=== PATIENT | female | born 1955 | race Caucasian/White ===

== ENCOUNTER 2018-07-19 18:38 | Inpatient (IN) | payer MEDICAID, OTHER ==
[~2018-07-19] VITALS: Ht 170.2 cm; Wt 124.0 kg
[2018-07-19] MEDS ORDERED: fentaNYL/PF 50MCG/1 ML 2ML syringe IV ONE (20:30)
[2018-07-19] MEDS ORDERED: iohexol 350MG/ML 100ml bottle IV ONE (20:36)
[2018-07-19 20:53] LABS: BASOPHILS # (AUTO) 0.1 X10'3 (0-0.2); BASOPHILS % (AUTO) 0.5 % (0-1); EOSINOPHILS % (AUTO) 0.1 % (0-6); HEMATOCRIT 36.9 % (35.0-45.0); HEMOGLOBIN 11.8 g/dl (12.0-16.0); LYMPHOCYTES # (AUTO) 0.7 X10'3 (1.1-4.8); MEAN CORPUSCULAR HEMOGLOBIN 28.2 PG (27.0-31.0); MEAN CORPUSCULAR VOLUME 88.3 FL (78-98); MONOCYTES # (AUTO) 0.4 X10'3 (0-0.9); MONOCYTES % (AUTO) 3.4 % (2-12); NEUTROPHILS # (AUTO) 10.1 X10'3 (1.8-7.7); PLATELET COUNT 317 X10'3 (140-440); RED BLOOD COUNT 4.18 X10'6 (4.20-5.60); RED CELL DISTRIBUTION WIDTH 17.2 % (11.5-14.5); WHITE BLOOD COUNT 11.3 X10'3 (4.5-11.0)
--- NOTE | 2018-07-19 21:10 | NUR ---
[id number] FAMILY OR FRIEND OF PT
[2018-07-19 21:14] LABS: PARTIAL THROMBOPLASTIN TIME 25 SECONDS (22-32)
[2018-07-19 21:28] LABS: ALANINE AMINOTRANSFERASE 52 U/L (12-78); ALKALINE PHOSPHATASE 122 IU/L (46-116); ANION GAP 15 (8-16); ASPARTATE AMINO TRANSFERASE 60 U/L (10-37); BILIRUBIN,TOTAL 0.5 MG/DL (0.1-1.0); BLOOD UREA NITROGEN 26 MG/DL (7-18); CALCIUM 9.3 MG/DL (8.5-10.1); CHLORIDE 99 MMOL/L (99-107); CREATININE 2.17 MG/DL (0.40-0.90); GLUCOSE 125 MG/DL (70-104); POTASSIUM 3.9 MMOL/L (3.5-5.1); SODIUM 136 MMOL/L (135-145); TOTAL CARBON DIOXIDE 21.7 MMOL/L (24-32); TOTAL PROTEIN 8.1 G/DL (6.4-8.2); eGFR 23 ML/MIN
[2018-07-19] MEDS ORDERED: normal saline 1000ML IV soln IVB ONE (21:35)
[2018-07-19 21:36] LABS: CLARITY,URINE SLIGHTLY CLOUDY (Clear); COLOR,URINE YELLOW (Yellow); GLUCOSE, URINE NEGATIVE (Neg); KETONES,URINE NEGATIVE (Neg); LEUKOCYTE ESTERASE ,URINE NEGATIVE (Neg); NITRITES, URINE NEGATIVE (Neg); OCCULT BLOOD,URINE MODERATE (Neg); PH,URINE 5.5 (4.8-8.0); PROTEIN,URINE 30 mg/dl (Neg); UROBILINOGEN,URINE 0.2 E.U/dL (0.2-1.0)
[2018-07-19] MEDS ORDERED: METO-539 PO (21:36)
[2018-07-19 21:37] LABS: UA COLLECTION TYPE URINAL
[2018-07-19] MEDS ORDERED: ENAL10TA78 PO (21:37)
[2018-07-19] MEDS ORDERED: midazolam 2 mg/2 ml injection IV PRN (22:10)
[2018-07-19] MEDS ORDERED: LIDOcaine 1%/PF 5ML 10 MG/ML VIAL SQ ONE (22:10)
[2018-07-19] MEDS ORDERED: fentaNYL/PF 50MCG/1 ML 2ML syringe IV PRN (22:10)
[2018-07-19] MEDS ORDERED: heparin 1,000 UNITS/NS 500ml 500 ML ICATH ONE (22:10)
[2018-07-19 22:12] LABS: MUCUS STRANDS MODERATE /LPF (Neg); SQUAMOUS EPITHELIAL CELL,UR FEW /LPF (FEW); WBC,URINE 0-4 /HPF (0-4)
[2018-07-19 22:13] LABS: BACTERIA,URINE FEW /HPF (Neg)
[2018-07-19] MEDS ORDERED: LIDOcaine 1%/PF 5ML 10 MG/ML VIAL ONE (22:16)
[2018-07-19] MEDS ORDERED: iohexol 300mg/ml 100ml inj. ONE (22:17)
[2018-07-19] MEDS ORDERED: midazolam 2 mg/2 ml injection ONE ×3 (22:17→23:12)
[2018-07-19] MEDS ORDERED: heparin 1,000 UNITS/NS 500ml 500 ML ONE ×2 (22:17→23:35)
[2018-07-19] MEDS ORDERED: fentaNYL/PF 50MCG/1 ML 2ML syringe ONE ×2 (22:17→23:11)
--- NOTE | 2018-07-19 22:46 | NUR ---
PT OFF THE FLOOR GOING TO IR.
[2018-07-19] MEDS ORDERED: ondansetron/PF 4mg/2ml inj IV PRN (23:00)
[2018-07-19] MEDS ORDERED: acetaminophen 325mg tablet PO PRN ×2 (23:00)
[2018-07-19] MEDS ORDERED: HYDROcodone/acetaminophen 5mg/325mg tablet PO PRN (23:00)
[2018-07-19] MEDS ORDERED: potassium CL 10mEq/100ml bag 100 ML IV PRN ×2 (23:00)
[2018-07-19] MEDS: K, MAG and/or Phos replacement - Verify level? MC SCH (23:00)
[2018-07-19] MEDS ORDERED: morphine 2 MG/ML inj. syringe IV PRN (23:00)
[2018-07-19] MEDS ORDERED: potassium Cl 20 mEq SR tablet PO PRN (23:00)
[2018-07-19] MEDS ORDERED: nitroGLYCERIN-Tridil 50MG/D5W 250 ML IV ONE (23:06)
[2018-07-19] MEDS ORDERED: heparin 1,000 UNITS/NS 500ml 500 ML IV SCH ×2 (23:28→23:34)
[2018-07-19] MEDS: tPA-cathflo 2mg/2ml IV flush 4 MG in normal saline 100ml IV soln 100 ML ICATH SCH (23:28)
[2018-07-20] VITALS (29 sets, daily range): BP systolic 112–187; BP diastolic 60–158
--- NOTE | 2018-07-20 | NUR ---
Received patient in room CICU 2013 from IR. I have received bedside report from Coby RN and DARSHAN Kwon and had the opportunity to ask questions and assume patient care.
[2018-07-20] MEDS: morphine 4 MG/ML inj SYRINge IV PRN ×2 (01:54→06:25)
[2018-07-20] MEDS: HYDROmorphone/NS 1 mg/ml CADD 50 ML IV SCH ×12 (02:41→23:00)
[2018-07-20 03:10] LABS: ALANINE AMINOTRANSFERASE 49 U/L (12-78); ALBUMIN 3.3 G/DL (3.4-5.0); ANION GAP 14 (8-16); ASPARTATE AMINO TRANSFERASE 54 U/L (10-37); BLOOD UREA NITROGEN 23 MG/DL (7-18); BUN/CREATININE RATIO 14.8 (6.6-38.0); CALCIUM 8.7 MG/DL (8.5-10.1); CHLORIDE 102 MMOL/L (99-107); CREATININE 1.55 MG/DL (0.40-0.90); GLUCOSE 121 MG/DL (70-104); MAGNESIUM 2.2 MG/DL (1.5-2.4); POTASSIUM 3.7 MMOL/L (3.5-5.1); SODIUM 136 MMOL/L (135-145); TOTAL CARBON DIOXIDE 20.1 MMOL/L (24-32); eGFR 34 ML/MIN
[2018-07-20 03:11] LABS: BASOPHILS # (AUTO) 0.1 X10'3 (0-0.2); BASOPHILS % (AUTO) 0.6 % (0-1); EOSINOPHILS % (AUTO) 0 % (0-6); HEMATOCRIT 32.5 % (35.0-45.0); HEMOGLOBIN 10.7 g/dl (12.0-16.0); LYMPHOCYTES # (AUTO) 1.3 X10'3 (1.1-4.8); LYMPHOCYTES % (AUTO) 13.5 % (21-51); MEAN CORPUSCULAR HEMOGLOBIN 28.7 PG (27.0-31.0); MEAN CORPUSCULAR HGB CONC 32.7 g/dL (33.0-36.5); MEAN CORPUSCULAR VOLUME 87.8 FL (78-98); MEAN PLATELET VOLUME 8.1 FL (7.4-10.4); MONOCYTES # (AUTO) 0.7 X10'3 (0-0.9); MONOCYTES % (AUTO) 7.3 % (2-12); NEUTROPHILS # (AUTO) 7.4 X10'3 (1.8-7.7); NEUTROPHILS % (AUTO) 78.6 % (42-75); PLATELET COUNT 272 X10'3 (140-440); RED BLOOD COUNT 3.71 X10'6 (4.20-5.60); RED CELL DISTRIBUTION WIDTH 17.3 % (11.5-14.5); WHITE BLOOD COUNT 9.4 X10'3 (4.5-11.0)
[2018-07-20 03:27] LABS: ALBUMIN/GLOBULIN RATIO 0.9 (1.1-1.5); ALKALINE PHOSPHATASE 104 IU/L (46-116); BILIRUBIN,TOTAL 0.4 MG/DL (0.1-1.0); TOTAL PROTEIN 6.9 G/DL (6.4-8.2)
[2018-07-20] MEDS ORDERED: LORazepam 2 mg/ml vial IV PRN (04:00)
--- NOTE | 2018-07-20 04:00 | NUR ---
Patient really restless and anxious, keeps lifting her arm and bending her knee; thrashing and shaking. Patient is repeatedly being asked to keep arm still and at her side and keep her leg straight due to her sheath. Despite my efforts and the use of her dilaudid CAD, patient is inconsolable and blood pressure is in the 190's systolically. Bill Burnham called;was given an order for Ativan. Will give and continue to monitor.
[2018-07-20] MEDS: normal saline 1000ml 1,000 ML IV SCH ×2 (04:11→07:30)
[2018-07-20] MEDS ORDERED: tPA-cathflo 2mg/2ml IV flush 4 MG in normal saline 100ml IV soln 100 ML ICATH SCH (04:47)
[2018-07-20 06:18] LABS: HEMATOCRIT 32.5 % (35.0-45.0); HEMOGLOBIN 10.4 g/dl (12.0-16.0); MEAN CORPUSCULAR HEMOGLOBIN 28.7 PG (27.0-31.0); MEAN CORPUSCULAR HGB CONC 32.1 g/dL (33.0-36.5); MEAN CORPUSCULAR VOLUME 89.5 FL (78-98); MEAN PLATELET VOLUME 8.3 FL (7.4-10.4); PLATELET COUNT 250 X10'3 (140-440); RED BLOOD COUNT 3.63 X10'6 (4.20-5.60); RED CELL DISTRIBUTION WIDTH 16.9 % (11.5-14.5); WHITE BLOOD COUNT 9.3 X10'3 (4.5-11.0)
--- NOTE | 2018-07-20 06:42 | NUR ---
Problems reprioritized. Patient report given, questions answered & plan of care reviewed with DARSHAN Medrano.
[2018-07-20] MEDS: tPA-cathflo 2mg/2ml IV flush 4 MG in normal saline 100ml IV soln 100 ML ICATH SCH ×3 (07:30→23:28)
[2018-07-20] MEDS: K, MAG and/or Phos replacement - Verify level? MC SCH (07:35)
[2018-07-20] MEDS ORDERED: pantoprazole 40 MG vial IV SCH (08:00)
[2018-07-20] MEDS ORDERED: ESOMEPRAZOLE 40 MG VIAL IV STA (08:51)
[2018-07-20 09:24] LABS: URINE AMPHETAMINE SCREEN POSITIVE (Neg); URINE BARBITUATE SCREEN NEGATIVE (Neg); URINE BENZODIAZEPINES SCREEN POSITIVE (Neg); URINE CANNABINOID SCREEN POSITIVE (Neg); URINE COCAINE SCREEN NEGATIVE (Neg); URINE METHADONE SCREEN NEGATIVE (Neg); URINE OPIATE SCREEN POSITIVE (Neg); URINE PHENCYCLIDINE SCREEN NEGATIVE (Neg)
[2018-07-20] MEDS: heparin 1,000 UNITS/NS 500ml 500 ML IV SCH ×2 (09:53→20:20)
[2018-07-20] MEDS: QUEtiapine 25mg tablet PO SCH ×2 (09:54→20:44)
[2018-07-20 11:45] LABS: HEMATOCRIT 32.2 % (35.0-45.0); HEMOGLOBIN 10.4 g/dl (12.0-16.0); MEAN CORPUSCULAR HEMOGLOBIN 28.8 PG (27.0-31.0); MEAN CORPUSCULAR HGB CONC 32.4 g/dL (33.0-36.5); MEAN CORPUSCULAR VOLUME 88.8 FL (78-98); MEAN PLATELET VOLUME 7.9 FL (7.4-10.4); PLATELET COUNT 256 X10'3 (140-440); RED BLOOD COUNT 3.63 X10'6 (4.20-5.60); RED CELL DISTRIBUTION WIDTH 17.4 % (11.5-14.5); WHITE BLOOD COUNT 9.3 X10'3 (4.5-11.0)
[2018-07-20] MEDS ORDERED: fentaNYL/PF 50MCG/1 ML 2ML syringe IV PRN (12:10)
[2018-07-20] MEDS ORDERED: midazolam 2 mg/2 ml injection IV PRN (12:10)
[2018-07-20] MEDS ORDERED: LIDOcaine 1%/PF 5ML 10 MG/ML VIAL ONE (12:19)
[2018-07-20] MEDS ORDERED: iohexol 300mg/ml 100ml inj. ONE (12:19)
--- NOTE | 2018-07-20 12:41 | NUR ---
Patient went to IR on the monitor with nursing staff at 1230.
[2018-07-20] MEDS ORDERED: heparin 1,000 UNITS/NS 500ml 500 ML ONE (12:58)
[2018-07-20] MEDS ORDERED: nitroGLYCERIN-Tridil 50MG/D5W 250 ML IV ONE (13:10)
--- NOTE | 2018-07-20 13:51 | NUR ---
Patient returned from IR on the monitor with nursing staff at 1346.
[2018-07-20] MEDS ORDERED: ringers solution, lacted 1,000 ML IV SCH (13:52)
[2018-07-20] MEDS ORDERED: proCHLORperazine 10 MG/2 ml inj IV PRN (13:55)
[2018-07-20] MEDS ORDERED: meperidine/PF 25mg/ml syringe IV PRN ×3 (13:55)
[2018-07-20] MEDS ORDERED: ondansetron/PF 4mg/2ml inj IV PRN (13:55)
[2018-07-20] MEDS ORDERED: morphine 4 MG/ML inj SYRINge IV PRN ×2 (13:55)
[2018-07-20] MEDS ORDERED: heparin 10,000 units/1 ML INJ ONE (14:21)
--- NOTE | 2018-07-20 14:34 | NUR ---
Patient taken to OR on monitor by nursing staff at 1434.
[2018-07-20] MEDS ORDERED: midazolam 2 mg/2 ml injection ONE (14:38)
[2018-07-20] MEDS ORDERED: fentaNYL /PF 50mcg/ml 5ml ampule ONE (14:38)
[2018-07-20] MEDS ORDERED: propofol inj 20 ML IV ONE (14:44)
[2018-07-20] MEDS ORDERED: rocuronium 10mg/ml inj IV ONE (14:44)
[2018-07-20] MEDS ORDERED: LIDOcaine 2% (20mg/ml) 5ml vial ONE (14:44)
[2018-07-20] MEDS ORDERED: labetalol 20mg/4ml (5mg/ml) syringe IV ONE (14:56)
[2018-07-20] MEDS ORDERED: ceFAZolin 1000mg inj ONE ×2 (15:09)
[2018-07-20] MEDS ORDERED: dexamethasone sod phosphate 4mg/ml inj. ONE (15:59)
[2018-07-20] MEDS ORDERED: ketorolac trometh. 30mg/ml inj. ONE (16:00)
--- NOTE | 2018-07-20 16:51 | NUR ---
Patient returned from OR on the monitor by nursing staff at 1620. Patient was receiving Oxygen via simple mask at 10 L. New 20g PIV in Left Upper arm and R groin has art line.
[2018-07-20] MEDS: enalaprilat dihydrate 2.5mg/2ml vial IV PRN (17:18)
--- NOTE | 2018-07-20 17:41 | NUR ---
RN & CRN could not find radial pulse on (R) hand with doppler. Called Dr. Thibodeaux to notify of absence of pulse. He suggested pain control. No further orders received.
--- NOTE | 2018-07-20 18:24 | NUR ---
Problems reprioritized. Patient report given, questions answered & plan of care reviewed with Yudelka SEXTON.
--- NOTE | 2018-07-20 18:30 | NUR ---
Patient in room CICU 2013. I have received report and had the opportunity to ask questions and assume patient care.
--- NOTE | 2018-07-20 18:36 | NUR ---
Spoke to IR [employer] [employer] re: IV heparin. IV heparin is 1000 units per 500 ml NS running at 40 ml/hr. Per IR RN low dose heparin is non-therapeutic. Dr. Gonzalez put heparin into (L) UE PIV. (R) fem sheath came out of OR to pressure bag for B/P per Dr. Gonzalez. Will place order to monitor PTT per protocol and DARSHAN Jha will report results as needed.
--- NOTE | 2018-07-20 19:00 | NUR ---
pt will be resting with eyes close one moment and then crying in pain the next. however once patient presses ad setter she is soon resting with eyes closed again. will continue to monitor
[2018-07-20] MEDS: lisinopril 5mg tablet PO SCH (20:44)
[2018-07-20 20:50] LABS: HEMATOCRIT 31.9 % (35.0-45.0); HEMOGLOBIN 10.3 g/dl (12.0-16.0); MEAN CORPUSCULAR HEMOGLOBIN 28.8 PG (27.0-31.0); MEAN CORPUSCULAR HGB CONC 32.3 g/dL (33.0-36.5); MEAN CORPUSCULAR VOLUME 89.1 FL (78-98); MEAN PLATELET VOLUME 8.2 FL (7.4-10.4); PLATELET COUNT 220 X10'3 (140-440); RED BLOOD COUNT 3.57 X10'6 (4.20-5.60); WHITE BLOOD COUNT 9.5 X10'3 (4.5-11.0)
--- NOTE | 2018-07-20 22:03 | NUR ---
ptt came back low at 25. heparin infusing at a set rate to keep sheath open. tpn stopped on day shift and sheath pressure bagged for continuous bp monitoring. md notified. orders recieved to d/c heparin after this bag finishes.
[2018-07-21] VITALS (23 sets, daily range): BP systolic 120–167; BP diastolic 52–99
[2018-07-21] MEDS: HYDROmorphone/NS 1 mg/ml CADD 50 ML IV SCH ×12 (01:00→23:00)
--- NOTE | 2018-07-21 04:09 | NUR ---
pt continues to move and been leg even after receiving education on arterial lines. wave form is dampened despite flushing, repositioning, and zeroing. will continue to monitor.
[2018-07-21 05:48] LABS: BASOPHILS % (AUTO) 0.1 % (0-1); EOSINOPHILS % (AUTO) 0 % (0-6); HEMATOCRIT 30.9 % (35.0-45.0); LYMPHOCYTES # (AUTO) 0.7 X10'3 (1.1-4.8); LYMPHOCYTES % (AUTO) 6.4 % (21-51); MEAN CORPUSCULAR HEMOGLOBIN 29.1 PG (27.0-31.0); MEAN CORPUSCULAR HGB CONC 32.3 g/dL (33.0-36.5); MEAN CORPUSCULAR VOLUME 90.1 FL (78-98); MEAN PLATELET VOLUME 8.6 FL (7.4-10.4); MONOCYTES # (AUTO) 0.5 X10'3 (0-0.9); MONOCYTES % (AUTO) 4.6 % (2-12); NEUTROPHILS # (AUTO) 9.1 X10'3 (1.8-7.7); NEUTROPHILS % (AUTO) 88.9 % (42-75); PLATELET COUNT 230 X10'3 (140-440); RED BLOOD COUNT 3.43 X10'6 (4.20-5.60); RED CELL DISTRIBUTION WIDTH 17.6 % (11.5-14.5); WHITE BLOOD COUNT 10.3 X10'3 (4.5-11.0)
[2018-07-21 05:50] LABS: ALANINE AMINOTRANSFERASE 43 U/L (12-78); ALBUMIN 2.8 G/DL (3.4-5.0); ALBUMIN/GLOBULIN RATIO 0.8 (1.1-1.5); ALKALINE PHOSPHATASE 88 IU/L (46-116); ANION GAP 10 (8-16); ASPARTATE AMINO TRANSFERASE 40 U/L (10-37); BILIRUBIN,TOTAL 0.2 MG/DL (0.1-1.0); BLOOD UREA NITROGEN 21 MG/DL (7-18); BUN/CREATININE RATIO 19.8 (6.6-38.0); CHLORIDE 107 MMOL/L (99-107); CREATININE 1.06 MG/DL (0.40-0.90); GLUCOSE 112 MG/DL (70-104); MAGNESIUM 2.2 MG/DL (1.5-2.4); PHOSPHORUS 4.2 MG/DL (2.3-4.5); SODIUM 138 MMOL/L (135-145); TOTAL CARBON DIOXIDE 20.6 MMOL/L (24-32); TOTAL PROTEIN 6.3 G/DL (6.4-8.2); eGFR 52 ML/MIN
[2018-07-21] MEDS: tPA-cathflo 2mg/2ml IV flush 4 MG in normal saline 100ml IV soln 100 ML ICATH SCH (07:11)
[2018-07-21] MEDS: K, MAG and/or Phos replacement - Verify level? MC SCH (07:12)
[2018-07-21] MEDS: QUEtiapine 25mg tablet PO SCH ×2 (08:07→20:15)
[2018-07-21] MEDS: ESOMEPRAZOLE 40 MG VIAL IV SCH (08:07)
--- NOTE | 2018-07-21 10:13 | NUR ---
Patient's right hand remains dusky and cold with black coloring on digits. New noticeable dark discoloration on thumb and anterior forearm, cold to touch, radial pulse still absent. Patient continues to c/o pain. Will continue to monitor. CRN aware.
[2018-07-21] MEDS: normal saline 1000ml 1,000 ML IV SCH ×2 (14:59→22:28)
[2018-07-21] MEDS: lisinopril 5mg tablet PO SCH (20:15)
[2018-07-22] VITALS (24 sets, daily range): BP systolic 119–167; BP diastolic 47–82
[2018-07-22] MEDS: HYDROmorphone/NS 1 mg/ml CADD 50 ML IV SCH ×12 (01:00→23:00)
[2018-07-22 05:15] LABS: BASOPHILS % (AUTO) 0.2 % (0-1); EOSINOPHILS # (AUTO) 0.1 X10'3 (0-0.9); EOSINOPHILS % (AUTO) 0.6 % (0-6); LYMPHOCYTES # (AUTO) 1.1 X10'3 (1.1-4.8); MEAN CORPUSCULAR HEMOGLOBIN 28.3 PG (27.0-31.0); MEAN CORPUSCULAR HGB CONC 31.2 g/dL (33.0-36.5); MEAN CORPUSCULAR VOLUME 90.8 FL (78-98); MEAN PLATELET VOLUME 8.4 FL (7.4-10.4); MONOCYTES % (AUTO) 9.2 % (2-12); NEUTROPHILS # (AUTO) 8.9 X10'3 (1.8-7.7); PLATELET COUNT 229 X10'3 (140-440); RED BLOOD COUNT 3.52 X10'6 (4.20-5.60); RED CELL DISTRIBUTION WIDTH 17.5 % (11.5-14.5); WHITE BLOOD COUNT 11.1 X10'3 (4.5-11.0)
[2018-07-22 05:29] LABS: ALANINE AMINOTRANSFERASE 39 U/L (12-78); ALBUMIN 2.8 G/DL (3.4-5.0); ALBUMIN/GLOBULIN RATIO 0.8 (1.1-1.5); ALKALINE PHOSPHATASE 88 IU/L (46-116); ANION GAP 10 (8-16); ASPARTATE AMINO TRANSFERASE 42 U/L (10-37); BILIRUBIN,TOTAL 0.2 MG/DL (0.1-1.0); BLOOD UREA NITROGEN 19 MG/DL (7-18); BUN/CREATININE RATIO 19.6 (6.6-38.0); CALCIUM 8.4 MG/DL (8.5-10.1); CHLORIDE 106 MMOL/L (99-107); CREATININE 0.97 MG/DL (0.40-0.90); GLUCOSE 88 MG/DL (70-104); MAGNESIUM 2.3 MG/DL (1.5-2.4); PHOSPHORUS 2.2 MG/DL (2.3-4.5); POTASSIUM 3.8 MMOL/L (3.5-5.1); SODIUM 139 MMOL/L (135-145); TOTAL CARBON DIOXIDE 22.8 MMOL/L (24-32); TOTAL PROTEIN 6.5 G/DL (6.4-8.2); eGFR 58 ML/MIN
--- NOTE | 2018-07-22 06:36 | NUR ---
Problems reprioritized. Patient report given, questions answered & plan of care reviewed with Mary SEXTON.
--- NOTE | 2018-07-22 06:37 | NUR ---
Patient in room CICU 2013. I have received report from DARSHAN Fernandes and had the opportunity to ask questions and assume patient care.
[2018-07-22] MEDS: K, MAG and/or Phos replacement - Verify level? MC SCH (08:00)
[2018-07-22] MEDS: ESOMEPRAZOLE 40 MG VIAL IV SCH (08:51)
[2018-07-22] MEDS: QUEtiapine 25mg tablet PO SCH ×2 (08:51→20:30)
[2018-07-22] MEDS ORDERED: HYDROcodone/acetaminophen 5mg/325mg tablet PO PRN ×2 (11:55)
[2018-07-22] MEDS ORDERED: morphine 4 MG/ML inj SYRINge IV PRN (11:55)
[2018-07-22] MEDS ORDERED: ringers solution, lacted 1,000 ML IV ONE (13:40)
--- NOTE | 2018-07-22 14:40 | NUR ---
Pt drowsy, per Dr. Cast's orders, d/c'd the continuous dose of dilaudid cadd. Pt has 0.2mg demand dose only at this time.
--- NOTE | 2018-07-22 18:06 | NUR ---
Problems reprioritized. Patient report given, questions answered & plan of care reviewed with DARSHAN Fernandes.
[2018-07-22] MEDS: lisinopril 5mg tablet PO SCH (20:30)
[2018-07-23] VITALS (36 sets, daily range): BP systolic 101–178; BP diastolic 44–89
[2018-07-23] MEDS: HYDROmorphone/NS 1 mg/ml CADD 50 ML IV SCH ×12 (01:00→23:00)
[2018-07-23] MEDS: normal saline 1000ml 1,000 ML IV SCH ×4 (01:16→20:45)
[2018-07-23 05:07] LABS: BASOPHILS % (AUTO) 0.4 % (0-1); EOSINOPHILS # (AUTO) 0.2 X10'3 (0-0.9); EOSINOPHILS % (AUTO) 1.5 % (0-6); HEMATOCRIT 30.4 % (35.0-45.0); HEMOGLOBIN 9.6 g/dl (12.0-16.0); LYMPHOCYTES % (AUTO) 9.1 % (21-51); MEAN CORPUSCULAR HEMOGLOBIN 29.2 PG (27.0-31.0); MEAN CORPUSCULAR HGB CONC 31.6 g/dL (33.0-36.5); MEAN CORPUSCULAR VOLUME 92.2 FL (78-98); MEAN PLATELET VOLUME 8.3 FL (7.4-10.4); MONOCYTES # (AUTO) 0.9 X10'3 (0-0.9); MONOCYTES % (AUTO) 8.3 % (2-12); NEUTROPHILS # (AUTO) 8.7 X10'3 (1.8-7.7); NEUTROPHILS % (AUTO) 80.7 % (42-75); PLATELET COUNT 227 X10'3 (140-440); RED CELL DISTRIBUTION WIDTH 17.4 % (11.5-14.5); WHITE BLOOD COUNT 10.7 X10'3 (4.5-11.0)
[2018-07-23 05:11] LABS: ALANINE AMINOTRANSFERASE 44 U/L (12-78); ALBUMIN 2.6 G/DL (3.4-5.0); ALBUMIN/GLOBULIN RATIO 0.7 (1.1-1.5); ALKALINE PHOSPHATASE 83 IU/L (46-116); ANION GAP 9 (8-16); ASPARTATE AMINO TRANSFERASE 84 U/L (10-37); BILIRUBIN,TOTAL 0.2 MG/DL (0.1-1.0); BLOOD UREA NITROGEN 16 MG/DL (7-18); BUN/CREATININE RATIO 19.5 (6.6-38.0); CALCIUM 8.2 MG/DL (8.5-10.1); CHLORIDE 106 MMOL/L (99-107); CREATININE 0.82 MG/DL (0.40-0.90); GLUCOSE 98 MG/DL (70-104); MAGNESIUM 2.1 MG/DL (1.5-2.4); PHOSPHORUS 1.9 MG/DL (2.3-4.5); POTASSIUM 3.8 MMOL/L (3.5-5.1); SODIUM 138 MMOL/L (135-145); TOTAL PROTEIN 6.3 G/DL (6.4-8.2); eGFR 70 ML/MIN
[2018-07-23 05:22] LABS: PARTIAL THROMBOPLASTIN TIME 25 SECONDS (22-32)
--- NOTE | 2018-07-23 06:36 | NUR ---
Patient in room CICU 2013. I have received report from DARSHAN Fernandes and had the opportunity to ask questions and assume patient care.
[2018-07-23] MEDS: K, MAG and/or Phos replacement - Verify level? MC SCH (08:00)
[2018-07-23] MEDS: QUEtiapine 25mg tablet PO SCH ×2 (08:08→20:40)
[2018-07-23] MEDS: ESOMEPRAZOLE 40 MG VIAL IV SCH (08:08)
[2018-07-23] MEDS ORDERED: ceFAZolin 1GM/D5W- ADD-VANTAGE 50 ML IV SCH ×2 (13:00→16:00)
[2018-07-23] MEDS ORDERED: acetaminophen 1000 MG/100ml vial IV ONE (13:12)
[2018-07-23] MEDS ORDERED: sevoflurane 250ml liquid IH ONE (13:12)
--- NOTE | 2018-07-23 13:14 | NUR ---
Pt taken to OR by surgery team
[2018-07-23] MEDS ORDERED: fentaNYL /PF 50mcg/ml 5ml ampule ONE (13:19)
[2018-07-23] MEDS ORDERED: midazolam 2 mg/2 ml injection ONE (13:19)
[2018-07-23] MEDS: CADD PCA waste documentation MC SCH (13:26)
[2018-07-23] MEDS ORDERED: ceFAZolin 1000mg inj ONE ×2 (13:33)
[2018-07-23] MEDS ORDERED: rocuronium 10mg/ml inj IV ONE (13:38)
[2018-07-23] MEDS ORDERED: propofol inj 20 ML IV ONE (13:38)
[2018-07-23] MEDS ORDERED: ringers solution, lacted 1,000 ML IV SCH (14:08)
[2018-07-23] MEDS ORDERED: proCHLORperazine 10 MG/2 ml inj IV PRN (14:10)
[2018-07-23] MEDS ORDERED: meperidine/PF 25mg/ml syringe IV PRN ×3 (14:10)
[2018-07-23] MEDS ORDERED: morphine 4 MG/ML inj SYRINge IV PRN ×2 (14:10)
[2018-07-23] MEDS ORDERED: ondansetron/PF 4mg/2ml inj IV PRN (14:10)
[2018-07-23] MEDS ORDERED: neostigmine methylsulfate 1 MG/ML 10ml vial ONE (14:14)
[2018-07-23] MEDS ORDERED: glycopyrrolate 0.2mg/ml inj ONE (14:14)
--- NOTE | 2018-07-23 14:25 | NUR ---
Received from OR via BED, accompanied by Anesthesiologist DR AG and report given by Anesthesiologist. PT DROWSY, DENIES PAIN, RIGHT ARM W/AMPUTATION ABOVE ELBOW W/DRSG COVERED BY STUMP SOCK CDI, MONICA W/SANGUINOUS DRAINAGE, CONTEH CATHETER TO GRAVITY DRAINAGE. Addendum: 07/23/18 at 1508 by Blanca Mendez RN Amended: Links added.
--- NOTE | 2018-07-23 14:26 | NUR ---
report recieved from Jessy SEXTON from [facility]
--- NOTE | 2018-07-23 15:15 | NUR ---
received report from recovery
--- NOTE | 2018-07-23 15:55 | NUR ---
Report called to receiving nurse. Transferred via BED, NO Belongings, RECEIVING RN AT BEDSIDE TO RECEIVE PT, BLL, CALL LIGHT GIVEN, SIDE RAILS UP X 2. Special Issues communicated to receiving nurse. YES. Addendum: 07/23/18 at 1608 by Blanca Mendez RN Amended: Links added.
--- NOTE | 2018-07-23 16:00 | NUR ---
patient came to floor into 7552C
--- NOTE | 2018-07-23 18:31 | NUR ---
Problems reprioritized. Patient report given, questions answered & plan of care reviewed with Maddi SEXTON.
[2018-07-23] MEDS: lisinopril 5mg tablet PO SCH (20:40)
[2018-07-24] MEDS: HYDROmorphone/NS 1 mg/ml CADD 50 ML IV SCH ×3 (01:00→05:00)
[2018-07-24 02:00] VITALS: BP 100/61
[2018-07-24 03:45] VITALS: BP 100/61
[2018-07-24] MEDS ORDERED: ceFAZolin 1GM/D5W- ADD-VANTAGE 50 ML IV ONE (04:50)
[2018-07-24] MEDS: normal saline 1000ml 1,000 ML IV SCH ×2 (05:24→14:43)
[2018-07-24 06:10] VITALS: BP 134/50
--- NOTE | 2018-07-24 06:30 | NUR ---
I have received report from Maddi SEXTON
[2018-07-24 06:57] LABS: BASOPHILS % (AUTO) 0.4 % (0-1); EOSINOPHILS # (AUTO) 0.2 X10'3 (0-0.9); HEMATOCRIT 27.6 % (35.0-45.0); HEMOGLOBIN 8.9 g/dl (12.0-16.0); LYMPHOCYTES % (AUTO) 11.3 % (21-51); MEAN CORPUSCULAR HEMOGLOBIN 29.2 PG (27.0-31.0); MEAN CORPUSCULAR HGB CONC 32.1 g/dL (33.0-36.5); MONOCYTES # (AUTO) 0.8 X10'3 (0-0.9); MONOCYTES % (AUTO) 9.4 % (2-12); NEUTROPHILS # (AUTO) 6.8 X10'3 (1.8-7.7); NEUTROPHILS % (AUTO) 76.9 % (42-75); PLATELET COUNT 242 X10'3 (140-440); RED BLOOD COUNT 3.03 X10'6 (4.20-5.60); RED CELL DISTRIBUTION WIDTH 17.5 % (11.5-14.5); WHITE BLOOD COUNT 8.8 X10'3 (4.5-11.0)
[2018-07-24 06:59] LABS: ALANINE AMINOTRANSFERASE 37 U/L (12-78); ALBUMIN 2.1 G/DL (3.4-5.0); ALBUMIN/GLOBULIN RATIO 0.6 (1.1-1.5); ALKALINE PHOSPHATASE 71 IU/L (46-116); ANION GAP 7 (8-16); ASPARTATE AMINO TRANSFERASE 51 U/L (10-37); BILIRUBIN,TOTAL 0.2 MG/DL (0.1-1.0); BLOOD UREA NITROGEN 11 MG/DL (7-18); BUN/CREATININE RATIO 16.4 (6.6-38.0); CALCIUM 7.8 MG/DL (8.5-10.1); CHLORIDE 107 MMOL/L (99-107); CREATININE 0.67 MG/DL (0.40-0.90); GLUCOSE 99 MG/DL (70-104); MAGNESIUM 1.9 MG/DL (1.5-2.4); PHOSPHORUS 1.5 MG/DL (2.3-4.5); POTASSIUM 3.4 MMOL/L (3.5-5.1); SODIUM 137 MMOL/L (135-145); TOTAL CARBON DIOXIDE 22.9 MMOL/L (24-32); TOTAL PROTEIN 5.5 G/DL (6.4-8.2); eGFR 89 ML/MIN
[2018-07-24] MEDS: K, MAG and/or Phos replacement - Verify level? MC SCH (08:00)
[2018-07-24] MEDS: QUEtiapine 25mg tablet PO SCH ×2 (08:20→20:26)
[2018-07-24] MEDS: magnesium hydroxide 30ml (MOM) UD suspension PO PRN (08:28)
[2018-07-24] MEDS: potassium Cl 20 mEq SR tablet PO PRN ×3 (08:28→17:12)
[2018-07-24 10:00] VITALS: BP 122/49
[2018-07-24] MEDS: CADD PCA waste documentation MC SCH (11:16)
[2018-07-24] MEDS: HYDROcodone/acetaminophen 10/325mg tab PO PRN ×3 (11:37→20:27)
[2018-07-24] MEDS: ESOMEPRAZOLE 40 MG VIAL IV SCH (12:13)
--- NOTE | 2018-07-24 14:20 | NUR ---
Initial: Pt admit w/ swollen R hand positive for meth on admit. S/p R trans elbow amputation. Pt seen by RD for written/verbal diet ed w/ RD contact information provided. Pt reports trouble w/ food since new amputation and no bottom dentures; agreeable to gravy w/ meats, chopped meals, and double meats. Though low PO pt was agreeable to double proteins and declines ONS; dietary notified of preferences. Pt hx asim-en-y and takes vitamins at home per pt but no B12 past 4-5months; RD d/w RN for B12 supplementation and possibility of opioid antagonist per MD approval given no BM 6 days on dilaudid. Will continue to monitor. Rec: 1. continue regular diet; double proteins per pt request 2. MVI/B12 supplementation given hx asim-en-y and has not taken in months per MD approval 3. opioid antagonist for constipation on dilaudid per MD approval 4. routine bowel care 5. wt per rx Addendum: 07/24/18 at [address] Amended: Links added.
[2018-07-24] MEDS: HYDROmorphone 1 mg/ml syringe IV PRN ×2 (14:42→18:57)
[2018-07-24 18:00] VITALS: BP 134/41
--- NOTE | 2018-07-24 18:36 | NUR ---
Patient in room ORTHO 4015. I have received report from Nickie SEXTON and had the opportunity to ask questions and assume patient care.
--- NOTE | 2018-07-24 18:37 | NUR ---
Patient report given to Jesica SEXTON
[2018-07-24] MEDS: lisinopril 5mg tablet PO SCH (20:27)
[2018-07-24 22:00] VITALS: BP 116/35
[2018-07-25] MEDS: HYDROcodone/acetaminophen 10/325mg tab PO PRN ×6 (00:23→20:13)
[2018-07-25] MEDS: normal saline 1000ml 1,000 ML IV SCH ×3 (00:26→21:29)
[2018-07-25 05:17] LABS: BASOPHILS % (AUTO) 0.5 % (0-1); EOSINOPHILS # (AUTO) 0.2 X10'3 (0-0.9); EOSINOPHILS % (AUTO) 3.2 % (0-6); HEMATOCRIT 28.4 % (35.0-45.0); LYMPHOCYTES # (AUTO) 1.3 X10'3 (1.1-4.8); LYMPHOCYTES % (AUTO) 16.8 % (21-51); MEAN CORPUSCULAR HEMOGLOBIN 29.2 PG (27.0-31.0); MEAN CORPUSCULAR HGB CONC 31.6 g/dL (33.0-36.5); MEAN CORPUSCULAR VOLUME 92.2 FL (78-98); MEAN PLATELET VOLUME 8.6 FL (7.4-10.4); MONOCYTES # (AUTO) 1.1 X10'3 (0-0.9); MONOCYTES % (AUTO) 13.8 % (2-12); NEUTROPHILS % (AUTO) 65.7 % (42-75); PLATELET COUNT 237 X10'3 (140-440); RED BLOOD COUNT 3.08 X10'6 (4.20-5.60); RED CELL DISTRIBUTION WIDTH 17.8 % (11.5-14.5); WHITE BLOOD COUNT 7.7 X10'3 (4.5-11.0)
[2018-07-25 05:30] LABS: ALANINE AMINOTRANSFERASE 26 U/L (12-78); ALBUMIN 1.9 G/DL (3.4-5.0); ALBUMIN/GLOBULIN RATIO 0.5 (1.1-1.5); ALKALINE PHOSPHATASE 69 IU/L (46-116); ANION GAP 6 (8-16); ASPARTATE AMINO TRANSFERASE 31 U/L (10-37); BILIRUBIN,TOTAL 0.1 MG/DL (0.1-1.0); BLOOD UREA NITROGEN 8 MG/DL (7-18); BUN/CREATININE RATIO 10.5 (6.6-38.0); CALCIUM 8.1 MG/DL (8.5-10.1); CHLORIDE 109 MMOL/L (99-107); CREATININE 0.76 MG/DL (0.40-0.90); GLUCOSE 93 MG/DL (70-104); MAGNESIUM 2.2 MG/DL (1.5-2.4); PHOSPHORUS 1.5 MG/DL (2.3-4.5); SODIUM 139 MMOL/L (135-145); TOTAL CARBON DIOXIDE 23.9 MMOL/L (24-32); TOTAL PROTEIN 5.5 G/DL (6.4-8.2); eGFR 77 ML/MIN
--- NOTE | 2018-07-25 06:26 | NUR ---
Problems reprioritized. Patient report given, questions answered & plan of care reviewed with Nickie SEXTON.
[2018-07-25 06:30] VITALS: BP 147/55
[2018-07-25] MEDS: HYDROmorphone 1 mg/ml syringe IV PRN ×5 (06:32→17:46)
--- NOTE | 2018-07-25 07:10 | NUR ---
I have received patient report from Jesica SEXTON
[2018-07-25] MEDS: K, MAG and/or Phos replacement - Verify level? MC SCH (08:00)
[2018-07-25] MEDS: ESOMEPRAZOLE 40 MG VIAL IV SCH (08:20)
[2018-07-25] MEDS: magnesium hydroxide 30ml (MOM) UD suspension PO PRN (08:20)
[2018-07-25] MEDS: QUEtiapine 25mg tablet PO SCH ×2 (08:20→20:13)
[2018-07-25 10:00] VITALS: BP 177/78
--- NOTE | 2018-07-25 12:00 | NUR ---
pulled MONICA drain per order.
[2018-07-25] MEDS ORDERED: methylnaltrexone br 12mg/0.6ml inj***SubQ only SQ ONE (14:20)
--- NOTE | 2018-07-25 15:49 | NUR ---
Called Dr. Cast regarding phosphorus 1.5 He doesn't want it replaced, he would like patient to eat.
[2018-07-25 18:00] VITALS: BP 138/41
--- NOTE | 2018-07-25 18:30 | NUR ---
Patient report given to Jesica SEXTON
--- NOTE | 2018-07-25 18:31 | NUR ---
Patient in room ORTHO 4015. I have received report from Nickie SEXTON and had the opportunity to ask questions and assume patient care.
[2018-07-25] MEDS: lisinopril 5mg tablet PO SCH (20:14)
[2018-07-25 22:00] VITALS: BP 154/58
[2018-07-26] MEDS: HYDROcodone/acetaminophen 10/325mg tab PO PRN ×4 (00:14→19:06)
[2018-07-26] MEDS: HYDROmorphone 1 mg/ml syringe IV PRN ×3 (05:38→22:24)
--- NOTE | 2018-07-26 06:30 | NUR ---
Problems reprioritized. Patient report given, questions answered & plan of care reviewed with Dena SEXTON.
[2018-07-26 06:55] LABS: ALANINE AMINOTRANSFERASE 31 U/L (12-78); ALBUMIN 2.4 G/DL (3.4-5.0); ALBUMIN/GLOBULIN RATIO 0.5 (1.1-1.5); ALKALINE PHOSPHATASE 86 IU/L (46-116); ANION GAP 9 (8-16); ASPARTATE AMINO TRANSFERASE 30 U/L (10-37); BILIRUBIN,TOTAL 0.2 MG/DL (0.1-1.0); BLOOD UREA NITROGEN 9 MG/DL (7-18); BUN/CREATININE RATIO 10.7 (6.6-38.0); CHLORIDE 106 MMOL/L (99-107); CREATININE 0.84 MG/DL (0.40-0.90); GLUCOSE 131 MG/DL (70-104); MAGNESIUM 2.2 MG/DL (1.5-2.4); PHOSPHORUS 1.7 MG/DL (2.3-4.5); SODIUM 138 MMOL/L (135-145); TOTAL PROTEIN 6.8 G/DL (6.4-8.2); eGFR 68 ML/MIN
[2018-07-26] MEDS: QUEtiapine 25mg tablet PO SCH ×2 (07:53→20:26)
[2018-07-26] MEDS: cyanocobalamin 500mcg tablet PO SCH (07:53)
[2018-07-26] MEDS: K, MAG and/or Phos replacement - Verify level? MC SCH (08:00)
[2018-07-26] MEDS: ESOMEPRAZOLE 40 MG VIAL IV SCH (08:07)
[2018-07-26 09:26] LABS: BASOPHILS # (AUTO) 0.1 X10'3 (0-0.2); BASOPHILS % (AUTO) 0.7 % (0-1); EOSINOPHILS # (AUTO) 0.2 X10'3 (0-0.9); EOSINOPHILS % (AUTO) 2.7 % (0-6); HEMATOCRIT 28.4 % (35.0-45.0); HEMOGLOBIN 9.1 g/dl (12.0-16.0); LYMPHOCYTES % (AUTO) 11.1 % (21-51); MEAN CORPUSCULAR HEMOGLOBIN 29.1 PG (27.0-31.0); MEAN CORPUSCULAR VOLUME 90.9 FL (78-98); MEAN PLATELET VOLUME 9.1 FL (7.4-10.4); MONOCYTES % (AUTO) 10.9 % (2-12); NEUTROPHILS # (AUTO) 6.6 X10'3 (1.8-7.7); NEUTROPHILS % (AUTO) 74.6 % (42-75); PLATELET COUNT 226 X10'3 (140-440); RED BLOOD COUNT 3.13 X10'6 (4.20-5.60); RED CELL DISTRIBUTION WIDTH 17.4 % (11.5-14.5); WHITE BLOOD COUNT 8.8 X10'3 (4.5-11.0)
[2018-07-26] MEDS ORDERED: bisacodyl 10mg suppository rectal RC STA (12:02)
[2018-07-26] MEDS ORDERED: bisacodyl 10mg suppository rectal RC PRN (12:05)
[2018-07-26] MEDS ORDERED: magnesium citrate 296ml oral solution PO ONE (12:05)
[2018-07-26] MEDS: normal saline 1000ml 1,000 ML IV SCH (16:47)
[2018-07-26 18:00] VITALS: BP 173/80
--- NOTE | 2018-07-26 18:42 | NUR ---
REC'D REPORT FROM ASHKAN SEXTON AND ASSUMED CARE OF PATIENT.
[2018-07-26] MEDS: enalaprilat dihydrate 2.5mg/2ml vial IV PRN (19:06)
[2018-07-26] MEDS: lisinopril 5mg tablet PO SCH (20:26)
[2018-07-26 22:00] VITALS: BP 187/55
[2018-07-27] MEDS: HYDROcodone/acetaminophen 10/325mg tab PO PRN ×4 (03:35→23:52)
[2018-07-27] MEDS: normal saline 1000ml 1,000 ML IV SCH ×3 (03:37→21:53)
[2018-07-27 06:00] VITALS: BP 157/58
--- NOTE | 2018-07-27 06:00 | NUR ---
Patient in room ORTHO 4015. I have received report from and had the opportunity to ask questions and assume patient DARSHAN Huerta
[2018-07-27] MEDS: HYDROmorphone 1 mg/ml syringe IV PRN ×4 (06:39→21:54)
--- NOTE | 2018-07-27 06:39 | NUR ---
VERBAL REPORT GIVEN TO ASHKAN SEXTON
[2018-07-27 06:44] LABS: BASOPHILS # (AUTO) 0.1 X10'3 (0-0.2); BASOPHILS % (AUTO) 1.2 % (0-1); EOSINOPHILS # (AUTO) 0.2 X10'3 (0-0.9); EOSINOPHILS % (AUTO) 3.1 % (0-6); HEMATOCRIT 28.3 % (35.0-45.0); HEMOGLOBIN 9.3 g/dl (12.0-16.0); LYMPHOCYTES # (AUTO) 1.3 X10'3 (1.1-4.8); LYMPHOCYTES % (AUTO) 16.9 % (21-51); MEAN CORPUSCULAR HEMOGLOBIN 29.3 PG (27.0-31.0); MEAN CORPUSCULAR HGB CONC 32.8 g/dL (33.0-36.5); MEAN CORPUSCULAR VOLUME 89.2 FL (78-98); MEAN PLATELET VOLUME 7.8 FL (7.4-10.4); MONOCYTES # (AUTO) 0.9 X10'3 (0-0.9); MONOCYTES % (AUTO) 11.9 % (2-12); NEUTROPHILS # (AUTO) 5.3 X10'3 (1.8-7.7); NEUTROPHILS % (AUTO) 66.9 % (42-75); PLATELET COUNT 222 X10'3 (140-440); RED BLOOD COUNT 3.17 X10'6 (4.20-5.60); RED CELL DISTRIBUTION WIDTH 17.1 % (11.5-14.5); WHITE BLOOD COUNT 7.9 X10'3 (4.5-11.0)
[2018-07-27 07:04] LABS: ALANINE AMINOTRANSFERASE 27 U/L (12-78); ALBUMIN 2.1 G/DL (3.4-5.0); ALBUMIN/GLOBULIN RATIO 0.5 (1.1-1.5); ALKALINE PHOSPHATASE 72 IU/L (46-116); ANION GAP 7 (8-16); ASPARTATE AMINO TRANSFERASE 26 U/L (10-37); BILIRUBIN,TOTAL 0.1 MG/DL (0.1-1.0); BLOOD UREA NITROGEN 6 MG/DL (7-18); BUN/CREATININE RATIO 8.3 (6.6-38.0); CALCIUM 8.1 MG/DL (8.5-10.1); CHLORIDE 108 MMOL/L (99-107); CREATININE 0.72 MG/DL (0.40-0.90); GLUCOSE 98 MG/DL (70-104); MAGNESIUM 2.3 MG/DL (1.5-2.4); PHOSPHORUS 2.1 MG/DL (2.3-4.5); SODIUM 140 MMOL/L (135-145); TOTAL CARBON DIOXIDE 24.8 MMOL/L (24-32); eGFR 82 ML/MIN
[2018-07-27] MEDS: cyanocobalamin 500mcg tablet PO SCH (07:32)
[2018-07-27] MEDS: QUEtiapine 25mg tablet PO SCH ×2 (07:33→20:30)
[2018-07-27] MEDS: K, MAG and/or Phos replacement - Verify level? MC SCH (08:00)
[2018-07-27] MEDS: ESOMEPRAZOLE 40 MG VIAL IV SCH (08:00)
[2018-07-27 10:00] VITALS: BP 105/51
[2018-07-27 18:00] VITALS: BP 135/86
--- NOTE | 2018-07-27 19:18 | NUR ---
RC'D VERBAL REPORT FROM ASHKAN SEXTON AND ASSUMED CARE OF PATIENT
[2018-07-27] MEDS: lisinopril 5mg tablet PO SCH (20:30)
[2018-07-27 22:00] VITALS: BP 138/85
[2018-07-28] MEDS: HYDROmorphone 1 mg/ml syringe IV PRN ×2 (05:28→09:19)
--- NOTE | 2018-07-28 05:28 | NUR ---
DILAUDID GIVEN TO PATIENT FOR PAIN LEVEL 5/10. DID NOT SCAN, HAD DRAWN MEDICATION UP TO ADMINISTER AND VIAL FELL ON FLOOR AND BROKE. PATIENT WANTING TO TRY AND GET OFF DILAUDID AND WILLING TO TRY DIFFERENT APPROACH TO CONTROLLING PAIN, UNDERSTANDS NEEDS TO BE OFF THE DILAUDID IV PRIOR TO DISCHG AND NEED TO FIND MEDS THAT WILL KEEP PAIN LEVEL CONTROLLED
[2018-07-28 06:00] VITALS: BP 180/65
--- NOTE | 2018-07-28 06:45 | NUR ---
REPORT TO BERRY
[2018-07-28 07:19] LABS: BASOPHILS # (AUTO) 0.1 X10'3 (0-0.2); EOSINOPHILS # (AUTO) 0.2 X10'3 (0-0.9); EOSINOPHILS % (AUTO) 3.5 % (0-6); HEMATOCRIT 27.1 % (35.0-45.0); HEMOGLOBIN 8.7 g/dl (12.0-16.0); LYMPHOCYTES # (AUTO) 1.2 X10'3 (1.1-4.8); LYMPHOCYTES % (AUTO) 16.9 % (21-51); MEAN CORPUSCULAR HEMOGLOBIN 28.9 PG (27.0-31.0); MEAN CORPUSCULAR VOLUME 90.2 FL (78-98); MEAN PLATELET VOLUME 8.2 FL (7.4-10.4); MONOCYTES # (AUTO) 0.8 X10'3 (0-0.9); MONOCYTES % (AUTO) 11.2 % (2-12); NEUTROPHILS # (AUTO) 4.7 X10'3 (1.8-7.7); NEUTROPHILS % (AUTO) 67.4 % (42-75); PLATELET COUNT 158 X10'3 (140-440); RED CELL DISTRIBUTION WIDTH 17.2 % (11.5-14.5)
[2018-07-28 07:23] LABS: ALANINE AMINOTRANSFERASE 26 U/L (12-78); ALBUMIN/GLOBULIN RATIO 0.5 (1.1-1.5); ALKALINE PHOSPHATASE 73 IU/L (46-116); ANION GAP 8 (8-16); ASPARTATE AMINO TRANSFERASE 24 U/L (10-37); BILIRUBIN,TOTAL 0.2 MG/DL (0.1-1.0); BLOOD UREA NITROGEN 5 MG/DL (7-18); BUN/CREATININE RATIO 7.6 (6.6-38.0); CHLORIDE 107 MMOL/L (99-107); CREATININE 0.66 MG/DL (0.40-0.90); GLUCOSE 98 MG/DL (70-104); MAGNESIUM 2.2 MG/DL (1.5-2.4); PHOSPHORUS 2.5 MG/DL (2.3-4.5); POTASSIUM 3.6 MMOL/L (3.5-5.1); SODIUM 140 MMOL/L (135-145); TOTAL PROTEIN 5.8 G/DL (6.4-8.2); eGFR 90 ML/MIN
[2018-07-28] MEDS: K, MAG and/or Phos replacement - Verify level? MC SCH (08:00)
[2018-07-28] MEDS: normal saline 1000ml 1,000 ML IV SCH ×2 (08:45→18:45)
[2018-07-28] MEDS: HYDROcodone/acetaminophen 10/325mg tab PO PRN ×4 (09:21→20:47)
[2018-07-28] MEDS: QUEtiapine 25mg tablet PO SCH ×2 (09:21→20:44)
[2018-07-28] MEDS: cyanocobalamin 500mcg tablet PO SCH (09:21)
[2018-07-28] MEDS: ESOMEPRAZOLE 40 MG VIAL IV SCH (09:23)
[2018-07-28] MEDS ORDERED: CYAN500T63 PO (13:00)
[2018-07-28] MEDS ORDERED: QUET25TA34 PO (13:00)
[2018-07-28] MEDS: docusate sod 100mg capsule PO SCH ×2 (13:09→20:44)
[2018-07-28 18:00] VITALS: BP 186/58
--- NOTE | 2018-07-28 18:30 | NUR ---
Patient in room ORTHO 4015. I have received report from Odessa SEXTON and had the opportunity to ask questions and assume patient care.
--- NOTE | 2018-07-28 18:42 | NUR ---
Patient remains in her room. No call back from Dr Kenyon. health safety engineer spoke with Dr Azul. Rx needed for pain control at home.
[2018-07-28] MEDS: lisinopril 5mg tablet PO SCH (20:45)
[2018-07-28 22:00] VITALS: BP 140/60
[2018-07-29] MEDS: HYDROcodone/acetaminophen 10/325mg tab PO PRN ×3 (00:53→09:13)
[2018-07-29] MEDS: normal saline 1000ml 1,000 ML IV SCH (04:45)
[2018-07-29 06:00] VITALS: BP 181/82
[2018-07-29 06:13] LABS: BASOPHILS # (AUTO) 0.1 X10'3 (0-0.2); BASOPHILS % (AUTO) 0.8 % (0-1); EOSINOPHILS # (AUTO) 0.3 X10'3 (0-0.9); EOSINOPHILS % (AUTO) 3.4 % (0-6); HEMATOCRIT 26.5 % (35.0-45.0); HEMOGLOBIN 8.8 g/dl (12.0-16.0); LYMPHOCYTES # (AUTO) 1.4 X10'3 (1.1-4.8); LYMPHOCYTES % (AUTO) 18.8 % (21-51); MEAN CORPUSCULAR HEMOGLOBIN 29.4 PG (27.0-31.0); MEAN CORPUSCULAR HGB CONC 33.1 g/dL (33.0-36.5); MEAN CORPUSCULAR VOLUME 89.1 FL (78-98); MEAN PLATELET VOLUME 8.1 FL (7.4-10.4); MONOCYTES # (AUTO) 0.8 X10'3 (0-0.9); MONOCYTES % (AUTO) 11.4 % (2-12); NEUTROPHILS # (AUTO) 4.8 X10'3 (1.8-7.7); NEUTROPHILS % (AUTO) 65.6 % (42-75); PLATELET COUNT 135 X10'3 (140-440); RED BLOOD COUNT 2.98 X10'6 (4.20-5.60); RED CELL DISTRIBUTION WIDTH 17.2 % (11.5-14.5); WHITE BLOOD COUNT 7.3 X10'3 (4.5-11.0)
[2018-07-29 06:16] LABS: ALANINE AMINOTRANSFERASE 27 U/L (12-78); ALBUMIN 2.1 G/DL (3.4-5.0); ALBUMIN/GLOBULIN RATIO 0.5 (1.1-1.5); ALKALINE PHOSPHATASE 74 IU/L (46-116); ANION GAP 7 (8-16); ASPARTATE AMINO TRANSFERASE 22 U/L (10-37); BILIRUBIN,TOTAL 0.2 MG/DL (0.1-1.0); BLOOD UREA NITROGEN 6 MG/DL (7-18); CALCIUM 8.4 MG/DL (8.5-10.1); CHLORIDE 105 MMOL/L (99-107); CREATININE 0.86 MG/DL (0.40-0.90); GLUCOSE 103 MG/DL (70-104); MAGNESIUM 2.1 MG/DL (1.5-2.4); PHOSPHORUS 2.7 MG/DL (2.3-4.5); POTASSIUM 3.3 MMOL/L (3.5-5.1); SODIUM 139 MMOL/L (135-145); TOTAL CARBON DIOXIDE 26.8 MMOL/L (24-32); eGFR 67 ML/MIN
--- NOTE | 2018-07-29 06:19 | NUR ---
Problems reprioritized. Patient report given, questions answered & plan of care reviewed with Odessa SEXTON.
[2018-07-29] MEDS: K, MAG and/or Phos replacement - Verify level? MC SCH (08:00)
[2018-07-29] MEDS: docusate sod 100mg capsule PO SCH (08:01)
[2018-07-29] MEDS: cyanocobalamin 500mcg tablet PO SCH (08:01)
[2018-07-29] MEDS: ESOMEPRAZOLE 40 MG VIAL IV SCH (08:01)
[2018-07-29] MEDS: QUEtiapine 25mg tablet PO SCH (08:01)
[2018-07-29] MEDS ORDERED: HYDR-4383 PO (08:10)
[2018-07-29 10:00] VITALS: BP 146/72
[2018-07-29] MEDS: potassium Cl 20 mEq SR tablet PO PRN (12:40)
== END 2018-07-29 13:15 | disposition home or self-care (01) | DRG 182 ==
LOC: ER 18:39 → CICU 2S 23:43 → ORTHO 4S 07-23 15:55
PROVIDERS: ADMIT Emergency Medicine; ATTEND Internal Medicine Critical Care Medicine
PROC: B31H1ZZ Fluoroscopy of Right Upper Extremity Arteries using Low Osmolar Contrast (ICD-10-PCS; 2018-07-19)
PROC: 03C90ZZ Extirpation of Matter from Right Ulnar Artery, Open Approach (ICD-10-PCS; 2018-07-20)
PROC: 3E05317 Introduction of Other Thrombolytic into Peripheral Artery, Percutaneous Approach (ICD-10-PCS; 2018-07-20)
PROC: 03CB0ZZ Extirpation of Matter from Right Radial Artery, Open Approach (ICD-10-PCS; principal; 2018-07-20 14:40)
PROC: 0X6B0ZZ Detachment at Right Elbow Region, Open Approach (ICD-10-PCS; 2018-07-23)
DX: I77.1 Stricture of artery (principal); I96 Gangrene, not elsewhere classified; I99.8 Other disorder of circulatory system; F12.90 Cannabis use, unspecified, uncomplicated; F17.200 Nicotine dependence, unspecified, uncomplicated; I10 Essential (primary) hypertension; I25.10 Atherosclerotic heart disease of native coronary artery without angina pectoris
CPT/HCPCS: 36160; 36415; 37211; 37214; 71045; 73206; 75710; 76937; 80053; 80305; 81001; 82948; 83735; 84100; 85025; 85027; 85347; 85384; 85610; 85730; 86885; 86900; 86901; 86920; 87070; 93005; 96361; 96374; 97110; 97116; 97161; 97530; 99152; 99153; 99291; A6222; A6446; A6449; A7000; C1757; C1769; C1894; G0378; J0131; J0690; J1100; J1170; J1644; J1885; J2001; J2060; J2250; J2270; J2704; J2710; J2997; J3010; J3490; J7030; J7120; Q9967

== ENCOUNTER 2019-07-24 18:20 | Emergency (ER) | payer MEDICAID ==
[~2019-07-24] VITALS: Ht 170.2 cm; Wt 86.4 kg
[~2019-07-24 18:20] MED LIST: CYAN500T63 PO; ENAL10TA78 PO; HYDR-4383 PO; QUET25TA34 PO
[2019-07-24 18:39] VITALS: BP 136/68
--- NOTE | 2019-07-24 18:50 | NUR ---
PT STATES SHE'S NOT HURTING OR HAVE NEW PAIN. PT DENIES ANY NEW INJURIES. OFFICER AT BEDSIDE.
== END 2019-07-24 19:16 ==
LOC: ER 18:21
DX: F10.129 Alcohol abuse with intoxication, unspecified (principal); I25.10 Atherosclerotic heart disease of native coronary artery without angina pectoris; I10 Essential (primary) hypertension; F12.90 Cannabis use, unspecified, uncomplicated; F15.90 Other stimulant use, unspecified, uncomplicated; Z60.2 Problems related to living alone; Z79.899 Other long term (current) drug therapy; V87.7XXA Person injured in collision between other specified motor vehicles (traffic), initial encounter; Y93.89 Activity, other specified; Y92.410 Unspecified street and highway as the place of occurrence of the external cause; Y99.8 Other external cause status; Y90.9 Presence of alcohol in blood, level not specified
CPT/HCPCS: 99283

== ENCOUNTER 2019-10-29 12:34 | Emergency (ER) | payer MEDICAID ==
[~2019-10-29] VITALS: Ht 167.6 cm; Wt 98.0 kg
[~2019-10-29 12:34] MED LIST changes: -CYAN500T63 PO; +CYAN500T64 PO
[2019-10-29 13:13] LABS: BASOPHILS # (AUTO) 0.1 X10'3 (0-0.2); BASOPHILS % (AUTO) 0.9 % (0-1); EOSINOPHILS % (AUTO) 0.1 % (0-6); HEMATOCRIT 41.5 % (35.0-45.0); HEMOGLOBIN 13.8 g/dl (12.0-16.0); LYMPHOCYTES # (AUTO) 1.8 X10'3 (1.1-4.8); LYMPHOCYTES % (AUTO) 19.1 % (21-51); MEAN CORPUSCULAR HEMOGLOBIN 30.3 PG (27.0-31.0); MEAN CORPUSCULAR HGB CONC 33.1 g/dL (33.0-36.5); MEAN CORPUSCULAR VOLUME 91.6 FL (78-98); MONOCYTES # (AUTO) 0.8 X10'3 (0-0.9); MONOCYTES % (AUTO) 7.9 % (2-12); NEUTROPHILS # (AUTO) 6.9 X10'3 (1.8-7.7); PLATELET COUNT 273 X10'3 (140-440); RED BLOOD COUNT 4.54 X10'6 (4.20-5.60); RED CELL DISTRIBUTION WIDTH 14.5 % (11.5-14.5); WHITE BLOOD COUNT 9.6 X10'3 (4.5-11.0)
[2019-10-29 13:28] LABS: ALANINE AMINOTRANSFERASE 15 U/L (12-78); ALBUMIN 3.7 G/DL (3.4-5.0); ALKALINE PHOSPHATASE 88 IU/L (46-116); ANION GAP 13 (8-16); ASPARTATE AMINO TRANSFERASE 15 U/L (10-37); BILIRUBIN,TOTAL 0.8 MG/DL (0.1-1.0); BLOOD UREA NITROGEN 19 MG/DL (7-18); BUN/CREATININE RATIO 19.2 (6.6-38.0); CALCIUM 9.1 MG/DL (8.5-10.1); CHLORIDE 101 MMOL/L (99-107); CREATININE 0.99 MG/DL (0.40-0.90); GLUCOSE 113 MG/DL (70-104); POTASSIUM 3.7 MMOL/L (3.5-5.1); SODIUM 137 MMOL/L (135-145); TOTAL CARBON DIOXIDE 23.1 MMOL/L (24-32); TOTAL PROTEIN 7.4 G/DL (6.4-8.2); eGFR 56 ML/MIN
[2019-10-29 13:34] LABS: URINE HCG NEGATIVE (NEG)
[2019-10-29 13:37] LABS: ETHANOL < 0.010 GM/DL (0.0-0.010)
[2019-10-29 13:47] LABS: URINE AMPHETAMINE SCREEN NEGATIVE (Neg); URINE BARBITUATE SCREEN NEGATIVE (Neg); URINE BENZODIAZEPINES SCREEN NEGATIVE (Neg); URINE CANNABINOID SCREEN POSITIVE (Neg); URINE COCAINE SCREEN NEGATIVE (Neg); URINE METHADONE SCREEN NEGATIVE (Neg); URINE OPIATE SCREEN NEGATIVE (Neg); URINE PHENCYCLIDINE SCREEN NEGATIVE (Neg)
[2019-10-29] MEDS ORDERED: BUSP10TA11 PO (13:53)
[2019-10-29] MEDS ORDERED: LISI-642 PO (13:53)
[2019-10-29] MEDS ORDERED: WARF-65 PO (13:53)
[2019-10-29] MEDS ORDERED: CYAN500T64 PO (13:55)
[2019-10-29 13:59] LABS: PARTIAL THROMBOPLASTIN TIME 88 SECONDS (22-32)
[2019-10-29] MEDS: LORazepam 1 MG tablet PO PRN (15:18)
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
[2019-10-29] MEDS ORDERED: MV-M1TAB19 PO (15:58)
[2019-10-29] MEDS ORDERED: MELA10TA PO (16:13)
[2019-10-29] MEDS ORDERED: MV C PO (16:13)
[2019-10-29] MEDS ORDERED: DIPH-423 PO (16:13)
--- NOTE | 2019-10-29 16:33 | NUR ---
pt resting in bed no distress noted.
--- NOTE | 2019-10-29 19:00 | NUR ---
Received pt lying in bed watching television.Pt cooperative with assessment and continues to endorse anxiety and depression and seems to devalue herself. Pt was resistive to positive
[2019-10-29] MEDS ORDERED: hydrOXYzine 25 MG tablet PO ONE (20:45)
[2019-10-29] MEDS: Melatonin 3mg tablet PO SCH (20:51)
[2019-10-29] MEDS: diphenhydrAMINE 25mg capsule PO SCH (20:51)
[2019-10-29] MEDS: busPIRone 5mg tablet PO SCH (20:52)
[2019-10-29] MEDS ORDERED: MELATONIN 20 MG PO SCH (21:00)
--- NOTE | 2019-10-29 21:00 | NUR ---
Pt up to bathroom, gait steady. Pt tearful and c/o her mind racing. notified and ordered melatonin and atarax which were given along with her other noc meds. Will continue to monitor.
--- NOTE | 2019-10-29 23:00 | NUR ---
Pt resting quietly with eyes closed in no apparent distress.
--- NOTE | 2019-10-30 01:38 | NUR ---
pt resting in bed on right side. rr of 15. no s/s of distress or pain. will continue to monitor.
--- NOTE | 2019-10-30 03:30 | NUR ---
Pt remains asleep peacefully without signs of distress.
[2019-10-30] MEDS: LORazepam 1 MG tablet PO PRN ×5 (03:33→19:57)
--- NOTE | 2019-10-30 05:28 | NUR ---
Pt awoke at 0330 and went to the bathroom. Upon getting back in bed, pt became very panicky and said her mind was racing. Ativan given and able to nap on and off until 0520 when she got up again to use the restroom.
[2019-10-30] MEDS ORDERED: phytonadione inj. 10 MG in normal saline 100ml IV soln 100 ML IV ONE (07:00)
[2019-10-30] MEDS: multivitamins, therapeutics tablet PO SCH (07:18)
[2019-10-30] MEDS: busPIRone 5mg tablet PO SCH ×2 (07:19→19:56)
[2019-10-30] MEDS: cyanocobalamin 500mcg tablet PO SCH (07:19)
[2019-10-30] MEDS: lisinopril 10 MG tablet PO SCH (07:21)
[2019-10-30] MEDS: acetaminophen 325mg tablet PO PRN (07:24)
--- NOTE | 2019-10-30 07:33 | NUR ---
recieved report from DARSHAN Winston. Pt. in [facility] watching her phone. Phone was taken away per department protocol. Pt. became very anxious stating "im crazy inside my head and I have to watch my gospel shows or im going to kill myself. Pt. given Ativan and the portable tv.
--- NOTE | 2019-10-30 07:36 | NUR ---
spoke with Dr. Pablo about PT/INR. Ordered vit. K and FFP to be given in main ED. rm 14. Pt. given morning meds and escorted to main ed with DARSHAN Rashid.
[2019-10-30] MEDS ORDERED: [UNRECOGNIZED DRUG - OTHER] PO SCH (08:00)
--- NOTE | 2019-10-30 09:07 | NUR ---
I was clearing the room for SI patient she asked why I was taking the equipment out of the room, I informed her that it was for safety, she began sobbing and said that it didn't matter what equipment I took out because she could kill herself without the room equipment. she threw her cup of water out of the room on the floor then proceeded to clean it up then asked for the mental health tumbling barrel painter I told her that they would be here soon. I was able to calm her back down and will let her know about when they would be in to evaluate her.
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
[2019-10-30 10:49] VITALS: BP 94/66
[2019-10-30] MEDS: Melatonin 3mg tablet PO SCH (19:57)
[2019-10-30] MEDS: diphenhydrAMINE 25mg capsule PO SCH (19:58)
--- NOTE | 2019-10-30 20:15 | NUR ---
BREAKING PRIMARY RN- WILL CONT TO MONITOR.
[2019-10-30] MEDS ORDERED: warfarin 5mg tablet PO ONE (21:00)
--- NOTE | 2019-10-30 21:50 | NUR ---
breaking primary RN- will cont to monitor.
--- NOTE | 2019-10-31 00:43 | NUR ---
PT asleeping on back, RR 16, even and unlabored.
--- NOTE | 2019-10-31 02:57 | NUR ---
Pt asleep on R side, respirations even and unlabored
[2019-10-31] MEDS: LORazepam 1 MG tablet PO PRN ×3 (03:19→16:29)
--- NOTE | 2019-10-31 03:21 | NUR ---
PT WOKE UP TEARFUL, REQUESTING ATIVAN. PT GIVEN ATIVAN 1MG PO. PT USED THE RESTROOM AND RETURNED TO BED.
[2019-10-31] MEDS: acetaminophen 325mg tablet PO PRN (05:23)
--- NOTE | 2019-10-31 05:25 | NUR ---
PT WAKES UP AND IS TEARFUL, REQUESTS TYLENOL FOR GENERALIZED PAIN WHICH IS GIVEN TO HER. SHE INQUIRES ABOUT BEING ABLE TO WATCH THE TV IN THE DAYTIME.. "IT'S SAVING MY LIFE RIGHT NOW, I'M GOING TO GO CRAZY HERE."
[2019-10-31] MEDS ORDERED: LORazepam 1 MG tablet PO ONE (05:35)
--- NOTE | 2019-10-31 05:44 | NUR ---
PT IS DISTRESSED AND APPROACHES THE NURSING STATION SAYING "I CAN'T DO THIS I AM GOING TO GO NUTS, I SHOULD JUST BITE MY RADIAL ARTERY AND LAY IN BED AND BLEED OUT." PT STATES, "I NEED SOMETHING OR I AM GOING TO START SCREAMING AND YOU'LL HAVE TO TIE ME DOWN." THIS RN GETS A 1X ORDER OF ATIVAN 1MG PO FROM .
--- NOTE | 2019-10-31 07:16 | NUR ---
PT IS AWAKE BEEN UP TO THE BATHROOM ASKED FOR SOME COFFEE AND NOW IS LAYING BACK DOWN RESTING
[2019-10-31] MEDS: busPIRone 5mg tablet PO SCH (08:22)
[2019-10-31] MEDS: multivitamins, therapeutics tablet PO SCH (08:22)
[2019-10-31] MEDS: cyanocobalamin 500mcg tablet PO SCH (08:23)
[2019-10-31] MEDS: lisinopril 10 MG tablet PO SCH (08:23)
--- NOTE | 2019-10-31 08:49 | NUR ---
pt is having increase in anxity after breakfast wanting to know what is going on and wanting a tv to watch. ativan given with morning meds at breakfast. talked to pt to try to help answer questions to reduce anxity. incourged to lay down and try to rest
[2019-10-31 08:51] LABS: CLARITY,URINE CLEAR (Clear); COLOR,URINE YELLOW (Yellow); GLUCOSE, URINE NEGATIVE (Neg); KETONES,URINE NEGATIVE (Neg); LEUKOCYTE ESTERASE ,URINE NEGATIVE (Neg); NITRITES, URINE NEGATIVE (Neg); OCCULT BLOOD,URINE TRACE-INTACT (Neg); PH,URINE 6.5 (4.8-8.0); PROTEIN,URINE NEGATIVE (Neg); UROBILINOGEN,URINE 0.2 E.U/dL (0.2-1.0)
[2019-10-31 08:52] LABS: UA COLLECTION TYPE CLN CATCH MIDSTREAM
[2019-10-31 08:54] LABS: SQUAMOUS EPITHELIAL CELL,UR FEW /LPF (FEW)
[2019-10-31 08:55] LABS: BACTERIA,URINE FEW /HPF (Neg); RBC,URINE 0-2 /HPF (0-2); WBC,URINE NONE SEEN /HPF (0-4)
--- NOTE | 2019-10-31 09:33 | NUR ---
patient asleep at this time.We will monitor.
--- NOTE | 2019-10-31 10:08 | NUR ---
pt in bed resting at this time lab came and alisha some blood
[2019-10-31] MEDS ORDERED: olanzapine 10mg tablet PO PRN (10:40)
--- NOTE | 2019-10-31 10:51 | NUR ---
letting pt watch tv to help distract her and informed her that we have ziprixa if the tv doesn't help but she said she still wanted it. meds were given pt is laying in bed watching tv
--- NOTE | 2019-10-31 11:33 | NUR ---
pt in bed resting breathing even and unlabored and watching tv no crying or outword anxity noted at this time
--- NOTE | 2019-10-31 13:21 | NUR ---
pt sitting up at edge of bed eating lunch
--- NOTE | 2019-10-31 16:58 | NUR ---
pt having increase in anxity mandy given and turned tv back on to help distract her
[2019-10-31 19:31] VITALS: BP 112/69
[2019-10-31] MEDS ORDERED: warfarin 5mg tablet PO ONE (21:00)
== END 2019-10-31 19:38 ==
LOC: ER 12:34
DX: S80.12XA Contusion of left lower leg, initial encounter (principal); S80.11XA Contusion of right lower leg, initial encounter; S00.83XA Contusion of other part of head, initial encounter; S50.12XA Contusion of left forearm, initial encounter; F32.9 Major depressive disorder, single episode, unspecified; I25.10 Atherosclerotic heart disease of native coronary artery without angina pectoris; I10 Essential (primary) hypertension; F12.90 Cannabis use, unspecified, uncomplicated; F15.90 Other stimulant use, unspecified, uncomplicated; F10.10 Alcohol abuse, uncomplicated; Z89.201 Acquired absence of right upper limb, unspecified level; Z60.2 Problems related to living alone; Z79.899 Other long term (current) drug therapy; X83.8XXA Intentional self-harm by other specified means, initial encounter; Y93.89 Activity, other specified; Y92.89 Other specified places as the place of occurrence of the external cause; Y99.8 Other external cause status; Y90.9 Presence of alcohol in blood, level not specified
CPT/HCPCS: 36415; 36430; 70450; 80053; 80305; 80320; 81001; 81025; 84443; 85025; 85610; 85730; 86885; 86900; 86901; 96365; 99285; J3430; P9059; Q0163; Q0177